=== PATIENT | female | born 1975 | race Caucasian/White ===

== ENCOUNTER 2019-12-09 07:51 | Outpatient (CLI) | payer OTHER, SELFPAY | END 2019-12-09 07:52 | disposition home or self-care (01) | LOC: WOUND 07:54 | PROVIDERS: Family Provider Internal Medicine; Visit Provider Thoracic Surgery (Cardiothoracic Vascular Surgery) | DX: T81.89XA Other complications of procedures, not elsewhere classified, initial encounter (principal) | CPT/HCPCS: 11042; 99203 ==

== ENCOUNTER 2019-12-16 08:58 | Outpatient (CLI) | payer OTHER, SELFPAY | END 2019-12-16 08:59 | disposition home or self-care (01) | LOC: WOUND 09:00 | PROVIDERS: Family Provider Internal Medicine; Visit Provider Thoracic Surgery (Cardiothoracic Vascular Surgery) | DX: T81.89XA Other complications of procedures, not elsewhere classified, initial encounter (principal) | CPT/HCPCS: 11042 ==

== ENCOUNTER 2019-12-23 13:15 | Outpatient (CLI) | payer OTHER, SELFPAY | END 2019-12-23 13:16 | disposition home or self-care (01) | LOC: WOUND 13:15 | PROVIDERS: Family Provider Internal Medicine; Visit Provider Thoracic Surgery (Cardiothoracic Vascular Surgery) | DX: T81.89XA Other complications of procedures, not elsewhere classified, initial encounter (principal) | CPT/HCPCS: 11042 ==

== ENCOUNTER 2019-12-30 08:37 | Outpatient (CLI) | payer OTHER, SELFPAY | END 2019-12-30 08:38 | disposition home or self-care (01) | LOC: WOUND 08:38 | PROVIDERS: Family Provider Internal Medicine; Visit Provider Nurse Practitioner Family | DX: T81.89XA Other complications of procedures, not elsewhere classified, initial encounter (principal); Z90.13 Acquired absence of bilateral breasts and nipples | CPT/HCPCS: 11042 ==

== ENCOUNTER 2020-01-04 15:44 | Outpatient (CLI) | payer OTHER, SELFPAY | END 2020-01-04 15:45 | disposition home or self-care (01) | LOC: WOUND 15:46 | PROVIDERS: Visit Provider Nurse Practitioner Family | DX: L98.492 Non-pressure chronic ulcer of skin of other sites with fat layer exposed (principal) | CPT/HCPCS: 11042 ==

== ENCOUNTER 2020-01-13 08:44 | Outpatient (CLI) | payer OTHER, SELFPAY | END 2020-01-13 08:45 | disposition home or self-care (01) | LOC: WOUND 08:45 | PROVIDERS: Family Provider Internal Medicine; Visit Provider Thoracic Surgery (Cardiothoracic Vascular Surgery) | DX: L98.492 Non-pressure chronic ulcer of skin of other sites with fat layer exposed (principal); I96 Gangrene, not elsewhere classified; Z90.13 Acquired absence of bilateral breasts and nipples | CPT/HCPCS: 11042; 87070; 87176; 87205 ==

== ENCOUNTER 2020-01-20 08:14 | Outpatient (CLI) | payer OTHER, SELFPAY | END 2020-01-20 08:15 | disposition home or self-care (01) | LOC: WOUND 08:14 | PROVIDERS: Family Provider Internal Medicine; Visit Provider Nurse Practitioner Family | DX: T81.89XA Other complications of procedures, not elsewhere classified, initial encounter (principal) | CPT/HCPCS: 11042 ==

== ENCOUNTER 2020-01-27 08:42 | Outpatient (CLI) | payer OTHER, SELFPAY | END 2020-01-27 08:43 | disposition home or self-care (01) | LOC: WOUND 08:42 | PROVIDERS: Family Provider Internal Medicine; Visit Provider Thoracic Surgery (Cardiothoracic Vascular Surgery) | DX: L98.492 Non-pressure chronic ulcer of skin of other sites with fat layer exposed (principal); Z90.13 Acquired absence of bilateral breasts and nipples | CPT/HCPCS: 11042 ==

== ENCOUNTER 2020-02-01 10:48 | Outpatient (CLI) | payer OTHER, SELFPAY | END 2020-02-01 10:49 | disposition home or self-care (01) | LOC: WOUND 10:48 | PROVIDERS: Family Provider Internal Medicine; Visit Provider Nurse Practitioner Family | DX: L98.492 Non-pressure chronic ulcer of skin of other sites with fat layer exposed (principal) | CPT/HCPCS: 11042 ==

== ENCOUNTER 2020-02-08 13:28 | Outpatient (CLI) | payer OTHER, SELFPAY | END 2020-02-08 13:29 | disposition home or self-care (01) | LOC: WOUND 13:28 | PROVIDERS: Family Provider Internal Medicine; Visit Provider Nurse Practitioner Family | DX: L98.492 Non-pressure chronic ulcer of skin of other sites with fat layer exposed (principal) | CPT/HCPCS: 11042 ==

== ENCOUNTER 2020-02-17 08:55 | Outpatient (CLI) | payer OTHER, SELFPAY | END 2020-02-17 08:56 | disposition home or self-care (01) | LOC: WOUND 08:56 | PROVIDERS: Family Provider Internal Medicine; Visit Provider Thoracic Surgery (Cardiothoracic Vascular Surgery) | DX: T81.89XA Other complications of procedures, not elsewhere classified, initial encounter (principal); Y83.8 Other surgical procedures as the cause of abnormal reaction of the patient, or of later complication, without mention of misadventure at the time of the procedure | CPT/HCPCS: 11042 ==

== ENCOUNTER 2020-02-23 06:00 | Outpatient (RCR) | payer OTHER, SELFPAY | END 2020-03-13 23:59 | disposition home or self-care (01) | LOC: SPT 06:00 | PROVIDERS: Referring Provider Plastic Surgery; Visit Provider Plastic Surgery | DX: Z85.3 Personal history of malignant neoplasm of breast (principal); Z90.13 Acquired absence of bilateral breasts and nipples; Z98.890 Other specified postprocedural states | CPT/HCPCS: 97110; 97140; 97162 ==

== ENCOUNTER 2020-02-24 08:44 | Outpatient (CLI) | payer OTHER, SELFPAY | END 2020-02-24 08:45 | disposition home or self-care (01) | LOC: WOUND 08:45 | PROVIDERS: Family Provider Internal Medicine; Visit Provider Thoracic Surgery (Cardiothoracic Vascular Surgery) | DX: L98.492 Non-pressure chronic ulcer of skin of other sites with fat layer exposed (principal) | CPT/HCPCS: 11042 ==

== ENCOUNTER 2020-03-02 08:49 | Outpatient (CLI) | payer OTHER, SELFPAY | END 2020-03-02 08:50 | disposition home or self-care (01) | LOC: WOUND 08:49 | PROVIDERS: Family Provider Internal Medicine; Visit Provider Thoracic Surgery (Cardiothoracic Vascular Surgery) | DX: L98.492 Non-pressure chronic ulcer of skin of other sites with fat layer exposed (principal) | CPT/HCPCS: 11042 ==

== ENCOUNTER 2020-03-09 08:43 | Outpatient (CLI) | payer OTHER, SELFPAY | END 2020-03-09 08:44 | disposition home or self-care (01) | LOC: WOUND 08:44 | PROVIDERS: Family Provider Internal Medicine; Visit Provider Thoracic Surgery (Cardiothoracic Vascular Surgery) | DX: T81.89XA Other complications of procedures, not elsewhere classified, initial encounter (principal); Y83.8 Other surgical procedures as the cause of abnormal reaction of the patient, or of later complication, without mention of misadventure at the time of the procedure | CPT/HCPCS: 99212 ==

== ENCOUNTER 2020-03-14 06:00 | Outpatient (RCR) | payer OTHER, SELFPAY | END 2020-04-10 23:59 | disposition home or self-care (01) | LOC: SPT 06:00 | PROVIDERS: Referring Provider Plastic Surgery; Visit Provider Plastic Surgery | DX: Z85.3 Personal history of malignant neoplasm of breast (principal); Z90.13 Acquired absence of bilateral breasts and nipples; Z98.890 Other specified postprocedural states | CPT/HCPCS: 97110 ==

== ENCOUNTER 2020-04-11 06:00 | Outpatient (RCR) | payer OTHER, SELFPAY | END 2020-05-11 23:59 | disposition home or self-care (01) | LOC: SPT 06:00 | PROVIDERS: Referring Provider Plastic Surgery; Visit Provider Plastic Surgery | DX: Z85.3 Personal history of malignant neoplasm of breast (principal); Z90.13 Acquired absence of bilateral breasts and nipples; Z98.890 Other specified postprocedural states | CPT/HCPCS: 97110 ==

== ENCOUNTER 2020-05-12 06:00 | Outpatient (RCR) | payer OTHER, SELFPAY | END 2020-06-10 23:59 | disposition home or self-care (01) | LOC: SPT 06:00 | PROVIDERS: Referring Provider Plastic Surgery; Visit Provider Plastic Surgery | DX: Z85.3 Personal history of malignant neoplasm of breast (principal); Z90.13 Acquired absence of bilateral breasts and nipples | CPT/HCPCS: 97110 ==

== ENCOUNTER 2020-06-28 12:37 | Outpatient (CLI) | payer OTHER, SELFPAY ==
--- NOTE | 2020-06-28 12:35 | CT_ITS ---
WS: [id number] CT ABDOMEN AND PELVIS WITH CONTRAST HISTORY: S/P TRAM FLAP, ABDOMINAL PAIN, history of breast cancer. Mid and lower abdominal pain for 3 months. TECHNIQUE: Imaging performed of the abdomen and pelvis with IV contrast. Single phase imaging of the abdomen. Coronal and sagittal reformats are submitted. All CT scans at [facility] use at least one of these dose optimization techniques: automated exposure control; mA and/or kV adjustment per patient size (includes targeted exams where dose is matched to clinical indication); or iterativ e reconstruction. IV CONTRAST: Omnipaque 300; 95 mL IV. Oral contrast: Yes. DLP: 1129.92 mGycm COMPARISON: 06/25/2014 Lower thorax: Lung bases are clear. Heart is normal size. Small hiatal hernia. Liver/biliary system: Normal size liver. Several hypodensities scattered throughout the liver consist ent with cysts. The largest measures 1.5 cm in the mid RIGHT lobe of the liver. No bile duct dilatati on. Gallbladder: Gallbladder is contracted. Pancreas: Normal size pancreas and pancreatic duct. No adjacent inflammation. Spleen: Normal size spleen. No mass or infarct. Adrenal glands: Normal. Right kidney: Normal size kidney. 5 mm nonobstructing calcification lower pole. Cortical cyst in the lower pole measures 5 mm. Left kidney: Normal. Aorta: Normal. Lymphadenopathy: None. Free fluid: None. GI tract: The appendix is only partially visualized and appears normal. There is moderate amount of f ood products in the stomach. There is diffuse constipation throughout the colon. No acute inflammator y process. Abdominal wall: Fat-containing umbilical hernia. Pelvis: Bilateral enlarged ovary with with cysts. RIGHT ovary/cyst complex measures 3.1 x 3.7 cm. LEF T ovary/cysts complex measures 3.2 x 5.1 cm. Uterus has been removed. There is a focal bulge through the LEFT lower quadrant abdominal wall. There is an intact. Thin abdominal wall musculature which solis ears ectatic. Bones: Unremarkable. CT/CT abdomen pelvis w con* [id number] IMPRESSION: 1. Diffuse moderate constipation. 2. Large amount food products distending the stomach. May be due to recent teresita l or gastroparesis. 3. Bilateral ovarian cystic masses. Prior ultrasound from 08/22/2018 demonstrat ed no enlarged ovarian masses or cysts. Recommend transvaginal pelvic ultrasoun d evaluation. 4. Ectatic LEFT lower quadrant pelvic wall musculature. Herniation of fat but there is a very ectatic thin layer of musculature remaining. 5. Hepatic cysts.
[2020-06-28] MEDS: iohexol 300 mg/mL 50 mL Btl PO (12:52)
[2020-06-28] MEDS: iohexol 300 mg/mL 100 mL Btl IV (14:10)
== END 2020-06-28 12:38 | disposition home or self-care (01) ==
PROVIDERS: Visit Provider Plastic Surgery
DX: Z98.890 Other specified postprocedural states (principal); R10.9 Unspecified abdominal pain; Z85.3 Personal history of malignant neoplasm of breast; N83.202 Unspecified ovarian cyst, left side; N83.201 Unspecified ovarian cyst, right side; K76.89 Other specified diseases of liver
CPT/HCPCS: 74177; Q9967

== ENCOUNTER 2022-05-20 08:55 | Emergency (ER) | payer OTHER, SELFPAY ==
--- NOTE | 2022-05-20 09:00 | XRR_ITS ---
PROCEDURE INFORMATION: Exam: XR Chest Exam date and time: 05/20/2022 9:50 AM Age: 47 years old Clinical indication: Pain; Chest pressure; Additional info: Chest pain TECHNIQUE: Imaging protocol: Radiologic exam of the chest. Views: 1 view. COMPARISON: CT angio chest PE protcl [id number] 10/05/2018 9:58 PM FINDINGS: Lungs: Unremarkable. No consolidation. Pleural spaces: Unremarkable. No pleural effusion. No pneumothorax. Heart/Mediastinum: Unremarkable. No cardiomegaly. Bones/joints: Unremarkable for age. XR/XR chest 1V portable [id number] IMPRESSION: Negative chest exam.
--- NOTE | 2022-05-20 09:04 | ECG_ITS ---
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 Measurements Intervals [place] Rate: 111 P: -12 AL: 120 QRS: 17 QRSD: 78 T: 65 QT: 337 QTc: 458 Interpretive Statements SINUS TACHYCARDIA LOW QRS VOLTAGE IN PRECORDIAL LEADS [QRS DEFLECTION < 1.0 mV IN CHEST LEADS] ABNORMAL RHYTHM ECG INTERPRETATION BASED ON A DEFAULT AGE OF 40 YEARS Compared to ECG 10/05/2018 23:48:42 Low QRS voltage now present Sinus rhythm no longer present Electronically Signed On 05-20-2022 22:08:19 CDT by Malcom Vieira M.D. [id number]
[2022-05-20 09:08] VITALS: BP 154/106; PULSE 91; RESP 18; TEMP 36.7; O2SAT 99
--- NOTE | 2022-05-20 09:29 | ED_ITS ---
HPI - Chest Pain General: Chief Complaint: Chest Pain Stated Complaint: chest pain, sob, left shoulder pain Time Seen by Provider: 05/20/22 08:57 Source: patient Mode of arrival: ambulatory Limitations: no limitations History of Present Illness: Patient is a very nice 47-year-old female presents to ED today along with her for concerns of acute onset left posterior shoulder pain that began approximately 1 to 2 hours ago when she was riding in a vehicle to mosque. She states while at mosque/singing pain seemed to increase and patient noted diaphoresis and dyspnea. She states she sat down and told her she thought she needed to seek medical evaluation. Patient states she is concerned as she has a strong family history of cardiac disease with several family members experiencing myocardial infarcts in their 30s and 40s. Patient states it feels difficult to take a deep breath. She is not having any specific chest pain at the time of my examination. Patient states she has a history of hypertension and breast cancer. She is status post mastectomy. She states she had rejection of her artificial implants thus a flap breast reconstruction was performed-this was performed in 2019 I believe. She does state two weeks ago she had a bilateral oophorectomy as her breast cancer is estrogen positive and ovary removal allowed her more treatment options. She states her abdominal pain since the surgery has steadily improved and she does not complain of any pain in her abdomen currently. MD complaint: other (L posterior shoulder pain) Pertinent past history: other (HTN, strong family hx of cardiac disease, recent surgery) Onset (ago): hour(s) Prior episodes: No Onset: during rest Pain radiation: none Severity: moderate Quality: tightness and sharp Relieving factors: nothing Exacerbating factors: nothing Context: recent surgery Associated symptoms: Reports abdominal pain (recent surgery-pain improving post op), diaphoresis and dyspnea; Deny fever(s), nausea, palpitations, syncope or vomiting Treatment prior to arrival: none Risk Factors: Coronary artery disease risk factors: hypertension and family history of CAD before age 50 Thoracic aortic dissection risk factors: none Pulmonary embolism risk factors: recent surgery and malignancy Related Data: On Oral Contraceptives: No Review of Systems Const: Reports: diaphoresis; Denies: fever(s), chills, body aches, fatigue or malaise Eyes: Denies: change in vision or blurry vision Card: Reports: swelling of feet/ankles (states she chronically has a little swelling-takes HCTZ) and pre-syncope; Denies: chest pain, palpitations, irregular heart rhythm, edema, lig htheadedness, syncope, dyspnea on exertion, orthopnea, leg pain with exertion or acrocyanosis Resp: Reports: dyspnea; Denies: productive cough, non-productive cough, wheezing, hemoptysis or chest congestion GI: Reports: abdominal pain (recent surgery-pain improving post op); Denies: nausea, vomiting or change in bowel habits : Denies: flank pain or dysuria Musc: Reports: joint pain (L posterior shoulder pain); Denies: neck pain, back pain, extremity pain, extremity swelling, joint swelling, joint redness, joint warmth or limited range of motion Skin/Breast: Denies: rash Neuro: Denies: headache(s), numbness in extremities, weakness in extremities or sensory changes Physical Exam Const: COMMON NORMALS: no acute distress, average body habitus, patient oriented x3, no limitations, healthy appearing, alert and well nourished GENERAL APPEARANCE: cooperative ORIENTATION/CONSCIOUSNESS: Yes awake, Yes oriented to person, Yes oriented to place and Yes oriented to time HENMT: COMMON NORMALS: normocephalic and atraumatic HEAD & SCALP: normal to inspection, normocephalic and atraumatic Neck/C-Spine: COMMON NORMALS: no lymphadenopathy and no JVD GENERAL: Yes normal visual inspection Chest: COMMONS NORMALS: normal inspection of the chest and normal palpation of entire chest wall Resp: COMMON NORMALS: normal respiratory effort and clear to auscultation bilaterally AUSCULTATION: clear to auscultation bilaterally Cardio: COMMON NORMALS: no JVD, regular rate and regular rhythm RATE: regular rate RHYTHM: regular rhythm GI: COMMON NORMALS: Soft to palpation INSPECTION: Yes other (recent surgery/trocar incisions look good) AUSCULTATION: Yes normoactive bowel sounds PALPATION: Yes Soft to palpation, Yes Tenderness to palpation present (GI) (mild soreness from recent surgery; non-surgical abdomen), No Guarding du e to palpation present (GI) and No Rigid due to palpation OTHER: slight tenderness from recent oophorectomy : COMMON NORMALS: Yes no CVA tenderness BLADDER/KIDNEY EXAM: Yes no CVA tenderness Back/Pelvis: COMMON NORMALS: no CVA tenderness, thoracic and lumbar spine normal to inspection, no thoracic nor lumbar tenderness and thoraco-lumbar ROM normal Extremity: COMMON NORMALS: normal to inspection, full ROM, capillary refill normal, no joint enlargement, no clubbing, cyanosis or edema, no calf tenderness and no pedal edema GENERAL: Yes normal exam except as noted Neuro: NONA COMA SCALE: document GCS findings Nona coma scale eye opening: Spontaneous Nona coma scale verbal response: Orientated Nona coma scale motor response: Obey commands Nona coma scale total score: 15 COMMON NORMALS: patient oriented x3, moves all extremities, no focal motor deficits and no sensory deficits noted SENSORIUM/ORIENTATION: Yes alert, Yes oriented to person, Yes oriented to place and Yes oriented to time Skin: COMMON NORMALS: no rashes or lesions noted GENERAL SKIN EXAM: no rashes or lesions noted Course Vital Signs: Vital signs: Vital Signs Temperature 98.1 F 05/20/22 09:08 Pulse Rate 95 05/20/22 12:20 Respiratory Rate 18 05/20/22 09:08 Blood Pressure 137/90 05/20/22 12:20 Pulse Oximetry 97 05/20/22 12:20 Oxygen Delivery Me thod 05/20/22 09:55 MDM - Chest Pain Medical Decision Making Patient is a nice 47-year-old female who presented to ED today with a complaint of pain to her left posterior shoulder that began earlier this morning on her way to mosque. She's had no chest pain during her ED stay. Patient was initially concerned given her family history of cardiac disease beginning at a young age. She was worked up appropriately for this including baseline and repeat troponins and EKGs. Both EKGs were unremarkable. Her baseline trop is normal. Patient decided to leave prior to her 2 hr troponin returning stating she was feeling much better and ready to go. Risks discussed with her. States she would like to be called if it returns elevated. This did return normal. Patient does have a history of breast cancer/malignancy as well as her recent oophorectomy approximately 2 to 3 weeks ago. Given these risk factors d-dimer was added to patient's work-up to rule out pulmonary emboli. This was negative. Consideration given to diaphragmatic irritation with referred pain given her recent surgery however this would be less likely given that surgery was 2 to 3 weeks ago. I do not visualize any free air under patient's diaphragm on her CXR. Patient states she is not having any abdominal pain and pain has progressively and steadily improved since her surgery. I did not feel advanced imaging to her abdomen/pelvis is needed at this time. Patient is stable for discharge from the emergency department. I do recommend she speak to her primary care provider about possibly ordering stress testing outpatient. Lab Data 05/20/22 09:31 05/20/22 09:31 Radiology Impressions Chest X-Ray 05/20/22 09:00 IMPRESSION: Negative chest exam. Laboratory Results WBC 5.2 10^3/uL (4.0-10.0) 05/20/22 09:31 RBC 4.70 10^6/uL (4.1-5.3) 05/20/22 09: Hgb 15.4 g/dL (11.5-15.3) H 05/20/22 09: Hct 46.5 % (37.0-47.0) 05/20/22 09: MCV 98.9 fl (81-99) 05/20/22 09: MCH 32.8 pg (28.0-34.0) 05/20/22 09: MCHC 33.1 g/dL (30.0-36.0) 05/20/22 09: RDW 12.2 % (12.1-15.1) 05/20/22 09: Plt Count 225 10^3/cmm (130-400) 05/20/22 09:31 MPV 10.3 fL (7.4-10.4) 05/20/22 09:31 Neut % (Auto) 57.2 % 05/20/22 09: Lymph % (Auto) 27.0 % 05/20/22 09:31 Hendry % (Auto) 8.2 % 05/20/22 09:31 Eos % (Auto) 6.3 % 05/20/22 09:31 Baso % (Auto) 1.1 % 05/20/22 09: Neut # (Auto) 2.98 10^3/uL (1.8-7.7) 05/20/22 09:31 Lymph # (Auto) 1.4 10^3/uL (0.8-4.8) 05/20/22 09: Hendry # (Auto) 0.4 10^3/uL (0.2-0.9) 05/20/22 09:31 Eos # (Auto) 0.3 10^3/uL (0.0-0.8) 05/20/22 09:31 Baso # (Auto) 0.1 10^3/uL (0.0-0.1) 05/20/22 09:31 Nucleated RBC % (auto) 0 % 05/20/22 09: Nucleated RBCs # 0.0 /100WBC 05/20/22 09:31 D-Dimer 0.42 ug/mIFEU (0-0.59) 05/20/22 09:31 Sodium 132 mmol/L (136-145) L 05/20/22 09:31 Potassium 3.9 mmol/L (3.5-5.1) 05/20/22 09:31 Chloride 96 mmol/L (98-107) L 05/20/22 09:31 Carbon Dioxide 26 mmol/L (22-29) 05/20/22 09:31 Anion Gap 13.9 (5-19) 05/20/22 09:31 BUN 17 mg/dL (6-20) 05/20/22 09:31 Creatinine 0.9 mg/dL (0.5-0.9) 05/20/22 09:31 GFR Calculation 67.1 mL/min (90-130) L 05/20/22 09:31 Glucose 84 mg/dL (65-115) 05/20/22 09:31 Calculated Osmolality 275 mOsm/kg (285-295) L 05/20/22 09:31 Calcium 10.0 mg/dL (8.5-10.5) 05/20/22 09:31 Total Bilirubin 0.5 mg/dL (0.15-1.2) 05/20/22 09:31 AST 20 U/L (0-32) 05/20/22 09:31 ALT 27 U/L (0-33) 05/20/22 09:31 Alkaline Phosphatase 74 U/L (35-105) 05/20/22 09:31 Troponin T Baseline 6 ng/L (0-10) 05/20/22 09:31 Troponin T 120 Minute 6.03 ng/L (0-10) 05/20/22 11:31 Total Protein 7.3 g/dL (6.6-8.7) 04/09/23 09:31 Albumin 4.9 g/dL (3.5-5.2) 05/20/22 09:31 Globulin 2.4 g/dL (1.3-4.6) 05/20/22 09:31 HCG, Qual Negative (Negative) 05/20/22 09:31 Discharge Plan Discharge Patient Disposition: Home Clinical Impression: Pain of left shoulder region, Family history of cardiac disorder Condition: Stable Discharge Orders: Discharge ED (Routine); Ordered 05/20/22 Ordered By: Brooke Clayton Referrals: Pawan Gregory DO [Primary Care Provider] - Activity Restrictions/Additional Instructions: As we have discussed you opted not to stay for your repeat 2-hour troponin. If this comes back elevated I will attempt to reach you on the number provided on your file. You need to speak to your primary care provider about the possible need for stress test based on your cardiac family history. Need to return the emergency department for onset of chest pain, shortness of breath, difficulty breathing, severe dizziness or presyncopal feelings, abdominal pain, or any other concerns you may have. I hope you begin to feel better soon. 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
[2022-05-20 09:55] VITALS: BP 148/115; PULSE 86; O2SAT 96
[2022-05-20 09:56] LABS: Basophils # 0.1 10^3/uL (0.0-0.1); Basophils % 1.1 %; Eosinophils # 0.3 10^3/uL (0.0-0.8); Eosinophils % 6.3 %; Hematocrit 46.5 % (37.0-47.0); Hemoglobin 15.4 g/dL (11.5-15.3); Lymphocytes # 1.4 10^3/uL (0.8-4.8); Mean Corpuscular HGB Conc 33.1 g/dL (30.0-36.0); Mean Corpuscular Hemoglobin 32.8 pg (28.0-34.0); Mean Corpuscular Volume 98.9 fl (81-99); Mean Platelet Volume 10.3 fL (7.4-10.4); Monocytes # 0.4 10^3/uL (0.2-0.9); Monocytes % 8.2 %; Neutrophils # 2.98 10^3/uL (1.8-7.7); Neutrophils % 57.2 %; Nucleated Red Blood Cells % 0 %; Platelet Count 225 10^3/cmm (130-400); Red Cell Distribution Width 12.2 % (12.1-15.1); White Blood Count 5.2 10^3/uL (4.0-10.0)
[2022-05-20 10:12] LABS: HCG, Serum Qual Negative (Negative)
[2022-05-20 10:19] LABS: D Dimer 0.42 ug/mIFEU (0-0.59)
[2022-05-20 10:20] LABS: Troponin(5th) Baseline 6 ng/L (0-10)
[2022-05-20 10:22] LABS: Alanine Aminotransferase 27 U/L (0-33); Albumin Level 4.9 g/dL (3.5-5.2); Alkaline Phosphatase 74 U/L (35-105); Anion Gap 13.9 (5-19); Aspartate Amino Transferase 20 U/L (0-32); Blood Urea Nitrogen 17 mg/dL (6-20); Carbon Dioxide 26 mmol/L (22-29); Chloride 96 mmol/L (98-107); Globulin 2.4 g/dL (1.3-4.6); Glomerular Filtration Rate 67.1 mL/min (90-130); Glucose 84 mg/dL (65-115); Osmolality Calculated 275 mOsm/kg (285-295); Potassium 3.9 mmol/L (3.5-5.1); Sodium 132 mmol/L (136-145); Total Bilirubin 0.5 mg/dL (0.15-1.2); Total Protein 7.3 g/dL (6.6-8.7)
[2022-05-20 10:40] VITALS: BP 129/101; PULSE 86; O2SAT 96
--- NOTE | 2022-05-20 10:46 | ECG_ITS ---
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 Measurements Intervals [place] Rate: 80 P: 27 WI: 150 QRS: 17 QRSD: 79 T: 58 QT: 391 QTc: 451 Interpretive Statements SINUS RHYTHM WITH SINUS ARRHYTHMIA Compared to ECG 05/20/2022 09:04:32 Sinus tachycardia no longer present Electronically Signed On 05-20-2022 22:16:09 CDT by Malcom Vieira M.D. [id number]
[2022-05-20 11:57] VITALS: BP 137/100; PULSE 87; O2SAT 96
[2022-05-20 12:20] VITALS: BP 137/90; PULSE 95; O2SAT 97
[2022-05-20 12:24] LABS: Troponin 5 2HR 6.03 ng/L (0-10)
[2022-05-20 12:37] LABS: Troponin 5 2HR Delta 0.03 ABS# (0-10)
== END 2022-05-20 12:22 | disposition home or self-care (01) ==
PROVIDERS: Emergency Provider Physician Assistant; PCP Internal Medicine
DX: M25.512 Pain in left shoulder (principal); Z82.49 Family history of ischemic heart disease and other diseases of the circulatory system
CPT/HCPCS: 36415; 71045; 80053; 84484; 84703; 85025; 85378; 93005; 99285

== ENCOUNTER → 2022-11-28 10:52 | Outpatient (BNVA) | payer OTHER, SELFPAY | PROVIDERS: PCP Internal Medicine; Visit Provider Podiatrist Foot & Ankle Surgery | DX: M25.872 Other specified joint disorders, left ankle and foot | CPT/HCPCS: 73630 ==

== ENCOUNTER 2024-04-29 20:00 | Outpatient (CLI) | payer OTHER, SELFPAY | END 2024-04-29 20:01 | disposition home or self-care (01) | LOC: SLEEP 22:24 | PROVIDERS: PCP Internal Medicine; Visit Provider Internal Medicine | DX: G47.33 Obstructive sleep apnea (adult) (pediatric) (principal) | CPT/HCPCS: 95811 ==

== ENCOUNTER 2024-11-11 12:48 | Outpatient (CLI) | payer OTHER, SELFPAY ==
--- NOTE | 2024-11-11 12:57 | MR_ITS ---
WS: [id number] MRI HEAD WITH CONTRAST TECHNIQUE: Sagittal T1, T2 axial, T2 axial FLAIR, axial susceptibility weighted imaging, axial diffusion weighted images, and coronal T2 images were obtained. Pre and post-T1 axial and post T1 coronal images. ADC and FSPGR images. CLINICAL INFORMATION: TRANSIENT DIPLOPIA COMPARISON: None. FINDINGS: No evidence of restricted diffusion to suggest acute ischemia. Ventricular system and basal cisterns are patent. Moderate patchy supratentorial white matter changes mainly in the frontal periventricular and subcortical white matter. Additional white matter changes in the katherin. Findings are nonspecific in a patient this age but can be seen with hypertension, diabetes, and small vessel disease. Demyelinating diseases is an additional consideration given the history of blurred vision. No significant parenchymal volume loss. Normal posterior fossa. Normal vascular flow voids at the skull base. No extra-axial fluid collections. Paranasal sinuses and mastoid air cells are well aerated. No hemosiderin on the susceptibly weighted images. Normal optic chiasm and pituitary infundibulum. Ti ny hypoenhancing lesion in the RIGHT posterior pituitary measuring 3 mm. This may be incidental but differential considerations include microadenoma, Rathke's cleft cyst, pars intermedia cyst. Recommend correlation with pituitary function studies. No abnormal gadolinium enhancement. Normal dural venous sinuses. Suggestion of bilateral optic nerve enhancement can be seen with optic neuritis. This study is not specifically protocoled for the orbits and difficult to further delineate MR/MR head wo/w con [id number] IMPRESSION: 1. Moderate patchy supratentorial white matter changes with white matter israel es in the katherin. Findings are nonspecific in a patient this age but include hype rtension, diabetes, small vessel disease, and possibly demyelinating disease. 2. No abnormal intracranial enhancement. 3. Suggestion of prominent optic nerve/nerve sheath enhancement can be seen wi th optic neuritis. Recommend clinical correlation. The study is not specificall y protocoled for the optic nerves or orbits. 4. Tiny hypoenhancing lesion in the RIGHT posterior pituitary measuring 3 mm. This may be incidental but differential considerations include microadenoma, Ra thke's cleft cyst, pars intermedia cyst. Recommend correlation with pituitary f unction studies
[2024-11-11] MEDS: gadobenate dimeglumine 20 mL vial IV (13:37)
== END 2024-11-11 12:49 | disposition home or self-care (01) ==
LOC: RAD 12:50
PROVIDERS: PCP Internal Medicine; Visit Provider Family Medicine
DX: H53.2 Diplopia (principal); G93.89 Other specified disorders of brain; E23.6 Other disorders of pituitary gland
CPT/HCPCS: 70553

== ENCOUNTER 2024-11-26 03:10 | Emergency (ER) | payer OTHER, SELFPAY ==
[2024-11-26 03:10] VITALS: BP 125/88; PULSE 99; RESP 16; TEMP 36.6; O2SAT 98; BMI 24.7
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
--- OUTSIDE RECORDS SUMMARY | 2024-11-26 03:20 | XMS_ITS | Data Portability ---
Author Organization 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 all questions were answered to the patient's satisfaction. the patient was given the opportunity to ask additional questions and acknowledged he had no additional questions at this time and will call if any questions arise. [email or web address] Not available 10/13/2024 08:50:24 10/13/2024 10/13/2024 see previous note. with the diplopia, generalized weakness and severe fatigue, I am concerned regarding MS. MRI brain should be helpful, but I am recommending a neurologist evaluation as well. apparently neurogenic bladder has thankfully been ruled out. I spent greater than 45 mins. in counseling and answering questions on her issues noted today, reviewing previous lab studies, next steps in evaluation, on exam explaining next steps and what possible dx we are looking for. all questions were answered to the patient's satisfaction. the patient was given the opportunity to ask additional questions and acknowledged he had no additional questions at this time and will call if any questions arise. [email or web address] Not available 10/13/2024 09:26:59 11/13/2024 11/13/2024 no sign of infectious cause, sodium is normal. esr crp are normal thryoid is normal. I spent greater than 25 mins in counseling and answering questions on her mri results. all questions were answered to the patient's satisfaction. the patient was given the opportunity to ask additional questions and acknowledged he had no additional questions at this time and will call if any questions arise. Not available 11/13/2024 14:07:18 11/20/2024 11/20/2024 f/u as needed may cautuiously use otc nsaids as well monitoring for bp. [email or web address] Not available 11/20/2024 09:25:00 Plan of Treatment Reminders Order Date Submit Date Provider Last Modified By Organization Details Last Modified Time Details Appointments None recorded. Lab H pylori urea breath test, co2 infrared 2024 025 [facility] ([facility]), [address] [place] [address], [address], 5 08:46:25 C-reactiv e protein, quantitat karson, serum or plasma 2024 025 [place] [facility], [address] [place] [address], [facility] [address] [place], [address], 5 16:48:38 CBC 2024 025 [facility], [address] [place] [address], [address], 5 13:04:32 CMP, serum or plasma 2024 025 [facility], [address] [place] [address], [address], 5 13:24:26 ESR (erythroc yte sedimenta tion rate), blood [address] ([facility]), [address] [place], [address], 5 08:49:56 C-reactiv e protein, quantitat karson, serum or plasma 2024 025 [place] [address] [employer] [facility], [address] [place] [address] 248, [address], [place], [address], 08:10:20 ESR (erythroc yte sedimenta tion rate), blood [address] [facility], [address] [facility] [facility] [address], [address], [place], [address], 08:10:20 unlisted lab - TAMARA, ifa, cascade and rheumatoi d arthritis h panel 2, with reflexes 2024 MIAMI [employer] [facility], [address] , [place], [address], 16:48:35 thyrotrop in, QN, serum or plasma 2024 025 [facility], [address] [facility] [facility] [address], [address], [place], [address], 13:20:57 T4, free, serum 2024 025 MIAMI [employer] [facility], [address] [place] [address], [address], [place], [address], 5 16:48:40 CK (creatine kinase), total, serum 2024 025 [facility], [address] [place] [address], [address], [place], [address], 5 16:48:37 magnesium , serum or plasma - added test per Dr Hung 2024 025 [facility], [address] [place] [address], [address], [place], [address], 06:06:50 Referral pelvic floor therapy referral - carmen moran 2024 025 [email or web address] 2 [facility], [address], [place], [address], 18:01:[address] referral - [facility] dept of multiple sclerosis and neuroimmu nology Phone: (option 1) Fax: 2024 025 [email or web address] 2 Not available 16:30:35 ophthalmo logist referral 2024 025 [email or web address] 2 [facility], [address] , [place], [address], 17:25:18 Procedures None recorded. Surgeries None recorded. Imaging MRI, cervical spine, w/wo contrast 2024 [facility]25 [facility], [address] [place], [address], 09:37:24 MRI, thoracic spine, w/wo contrast 2024 025 [facility], [address] [place], [address], 09:37:56 MRI, brain, w/wo contrast 2024 025 [facility], [address] [place], [address], 16:37:19 electromy ogram + nerve conductio n study - 4 extremiti es 2024 [facility], [address] [place], [address], 15:19:03 Medication Orders tizanidin e 4 mg tablet 2024 025 [facility] #[id number], [address], [address], [place], [address], 09:24:41 ketorolac 60 mg/2 mL intramusc ular solution 2024 025 [email or web address] Not available 09:26:49 pantopraz ole 40 mg tablet,de layed release 2024 025 [id number], [address], [address], [place], [address], 12:33:56 sucralfat e 1 gram tablet 2024 025 [id number], [address], [address], [place], [address], 12:33:57 irbesarta n 75 mg tablet 2024 025 [id number], [address], [address], [place], [address], 09:01:43 clonidine HCl 0.1 mg tablet 2024 025 [id number], [address], [address], [place], [address], 12:00:18 irbesarta n 75 mg tablet 2024 025 [email or web address] [id number], [address], [address], [place], [address], 09:01:41 Patient TargetsNo targets recorded. Patient InstructionsNo instructions recorded. 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 Referring Physician: North Hung, Family Medicine, Encounter Date: 10/13/2024 Neurologist Referral for Mul tiple sclerosis [facility] dept of multiple sclerosis and neuroimmunologyPhone: (option 1) Referring Physician: North Hung [facility] Medicine, Encounter Date: 11/13/2024 Pelvic Floor Therapy Referra l for Overactive urinary bladder carmen luisa Referring Physician: North Hung [facility], Encounter Date: 11/13/2024 Results Created Date Observation Date Name Description Value Unit Range Abnormal Flag Note LastModifiedBy Organization Detail LastModifiedTime 09/26/1909/25/2024 CBC WBC 7.0 x10 4.0-10 .5 Not Available [facility] [address] [facility] [address], [place], [address], 09/25/2024 13:04:32 09/26/1909/25/2024 CBC RBC 4.48 x10 3.50-5 .50 Not Available [facility] [address] [facility] [address], [place], [address], 09/25/2024 13:04:32 09/26/19 25 09/25/2024 CBC HGB 14.1 g/dL 12.0-1 6.0 Not Available [facility] [address] [facility] [address], [place], [address], 09/25/2024 13:04:32 09/26/1909/25/2024 CBC HCT 43.4 % 37.0-4 7.0 Not Available [facility] [address] [facility] [address], [place], [address], 09/25/2024 13:04:32 09/26/1909/25/2024 CBC MCV 96.8 fL 80.0-9 9.9 Not Available [facility] [address] [facility] [address], [place], [address], 09/25/2024 13:04:32 09/26/19 25 09/25/2024 CBC MCH 31.5 pg 27.0-3 2.0 Not Available [facility] [address] [facility] [facility], [place], [address], 09/25/2024 13:04:32 09/26/1909/25/2024 CBC MCHC 32.6 g/dL 32.0-3 6.0 Not Available [facility] [address] [facility], [place], [address], 09/25/2024 13:04:32 09/26/1909/25/2024 CBC RDW 12.8 % 11.5-1 4.5 Not Available [facility] [address] [facility], [place], [address], 09/25/2024 13:04:32 09/26/1909/25/2024 CBC plt 264.9 x10 140.0- 451.0 Not Available [facility] [address] [facility], [place], [address], 09/25/2024 13:04:32 09/26/1909/25/2024 CBC lymphocytes % 33.4 % 20.0-5 0.0 Not Available [facility] [address] [facility], [place], [address], 09/25/2024 13:04:32 09/26/1909/25/2024 CBC granulcytes % 55.2 % 30.0-7 0.0 Not Available [facility] [address] [facility], [place], [address], 09/25/2024 13:04:32 09/26/1909/25/2024 CBC monocytes % 8.9 % 2.0-16 .0 Not Available [facility] [address] [facility], [place], [address], 09/25/2024 13:04:32 09/26/19 09/25/2024 CBC granulcytes# 3.8 x10 Not Ember ilable [facility] [address] [facility], [place], [address], 09/25/2024 13:04:32 09/26/19 25 09/25/2024 CBC lymphocytes # 2.3 x10 Not Available [facility] [address] [facility], [place], [address], 09/25/2024 13:04:32 09/26/19 25 09/25/2024 CBC monocytes # 0.6 x10 Not Avai lable [facility] [address] [address], [place], [address], 09/25/2024 13:04:32 09/26/19 25 09/25/2024 TSH TSH 1.79 uIU/m L 0.49-3 .82 Not Available [facility] [address] [address], [place], [address], 09/25/2024 13:20:57 09/26/19 25 09/25/2024 CMP (FEMA LE) glucose 86.0 mg/dL 60.0-9 9.0 Not Available [facility] [address] [address], [place], [address], 09/25/2024 13:24:25 09/26/19 25 09/25/2024 CMP (FEMA LE) BUN (blood urea nitrogen) 15.0 mg/dL 10.0-2 6.0 Not Available [facility] [address] [facility] L[address] [facility], [place], [address], 09/25/2024 13:24:25 09/26/19 25 09/25/2024 CMP (FEMA LE) creatinine (serum) 0.8 mg/dL 0.4-1. 5 Not Available [facility] [address] [place], [address], 09/25/2024 13:24:25 09/26/19 25 09/25/2024 CMP (FEMA LE) BUN/creatini ne ratio 18.75 ratio Not Available [facility] [address] [facility] Lary [facility], [place], [address], 09/25/2024 13:24:25 09/26/19 25 09/25/2024 CMP (FEMA LE) eGFR calculated 81.0 Not Available [facility] [address] [facility], [place], [address], 09/25/2024 13:24:25 09/26/19 25 09/25/2024 CMP (FEMA LE) total protein 8.0 g/dL 6.0-8. 5 Not Available [facility] [address] [facility], [place], [address], 09/25/2024 13:24:25 09/26/19 25 09/25/2024 CMP (FEMA LE) total bilirubin 0.7 mg/dL 0.2-1. 3 Not Available [facility] [address] [facility], [place], [address], 09/25/2024 13:24:25 09/26/19 25 09/25/2024 CMP (FEMA LE) albumin 5.0 g/dL 3.5-5. 5 Not Available [facility] [address] [facility], [place], [address], 09/25/2024 13:24:25 09/26/19 25 09/25/2024 CMP (FEMA LE) globulin 3.0 calc Not Available [facility] [address] [facility], [place], [address], 09/25/2024 13:24:25 09/26/19 25 09/25/2024 CMP (FEMA LE) AST (SGOT) 25.0 U/L 0.0-46 .0 Not Available [facility] [address] [facility] [address], [place], [address], 09/25/2024 13:24:25 09/26/19 25 09/25/2024 CMP (FEMA LE) altv (SGPT) 18.0 U/L 13.0-6 9.0 normal Not Available [facility] [address] [facility] [address], [place], [address], 09/25/2024 13:24:25 09/26/19 25 09/25/2024 CMP (FEMA LE) A/G ratio 1.7 ratio Not Available [facility] [address] [facility] [address], [place], [address], 09/25/2024 13:24:25 09/26/19 25 09/25/2024 CMP (FEMA LE) ALP phos 70.0 U/L 30.0-1 40.0 normal Not Available [facility] [address] [facility] [address], [place], [address], 09/25/2024 13:24:25 09/26/19 25 09/25/2024 CMP (FEMA LE) calcium 10.0 mg/dL 8.4-10 .5 Not Available [facility] [address] [address], [place], [address], 09/25/2024 13:24:25 09/26/19 25 09/25/2024 CMP (FEMA LE) sodium 135.0 mmol/ L 136.0- 145.0 low Not Available [facility] [address] [facility], [place], [address], 09/25/2024 13:24:25 09/26/19 25 09/25/2024 CMP (FEMA LE) potassium 3.1 mmol/ L 3.5-5. 1 low Not Available [facility] [address] [facility] [address], [place], [address], 09/25/2024 13:24:25 09/26/19 25 09/25/2024 CMP (FEMA LE) chloride 94.0 mmol/ L 98.0-1 10.0 abnormal Not Available [facility] [address] [facility], [place], [address], 09/25/2024 13:24:25 09/26/19 25 09/25/2024 CMP (FEMA LE) C02 33.0 mmol/ L 22.0-3 1.0 high Not Available [facility] [address] [facility] [address], [place], [address], 09/25/2024 13:24:25 09/26/19 25 09/25/2024 CMP (FEMA LE) anion gap 8.0 calc Not Available [facility] [address] [address], [place], [address], 09/25/2024 13:24:25 09/26/19 25 09/25/2024 CMP (FEMA LE) osmolality 279.3 calc Not Available [facility] [address] [address], [place], [address], 09/25/2024 13:24:25 09/01/19 25 09/02/2024 CULTU RE, URINE , ROUTI NE culture, urine, routine SEE NOTE abnormal CULTU RE, URINE , ROUTI NE Micro Numbe r: [id number] Test Statu s: Final Speci men Sourc e: Urine , clean catch Speci men Quali ty: Adequ ate Resul t: 50,00 0-100 ,000 CFU/m L of Esche melissa a coli E.col i ----- ----- ----- - INT GRACE AMOX/ CLAVU LANAT E S <=2 AMP/S ULBAC SEXTON S <=2 CEFAZ DEVEN NR 2 2 CEFEP CARMEN S <=0.1 2 CEFTA ZIDIM E S <=0.5 CEFTR IAXON E S <=0.2 5 CIPRO FLOXA GLYNN S <=0.0 6 GENTA MICIN S <=1 IMIPE NEM S <=0.2 5 LEVOF LOXAC IN S <=0.1 2 MEROP ENEM S <=0.2 5 NITRO FURAN TOIN S <=16 PIP/T AZOBA CTAM S <=4 TRIME THOPR IM/LION LFA S <=20 S = Susce ptibl e I = Inter media te R = Resis tant NS = Not susce ptibl e SDD = Susce ptibl e Dose Depen dent * = Not Teste d NR = Not Repor radha NN = See Thera py Comme nts THERA PY COMME NTS Note 1: For infec tions other than uncom plica radha UTI cause d by E. coli, K. pneum oniae or P. mirab ilis: Cefaz deven is resis tant if GRACE > or = 8 mcg/m L. (Dist ingui shing susce ptibl e versu s inter media te for isola evelia with GRACE < or = 4 mcg/m L requi res addit ional testi ng.) Note 2: For uncom plica radha UTI cause d by E. coli, K. pneum oniae or P. mirab ilis: Cefaz deven is susce ptibl e if GRACE <32 mcg/m L and predi cts susce ptibl e to the oral agent s cefac gee, cefdi leigh, cefpo doxim e, cefpr ozil, cefur oxime , cepha lexin and lorac arbef . Not Available [employer] [facility] [address] [place], [address], 09/02/2024 19:15:04 09/01/19 25 08/31/2024 urina lysis , dipst ick Leukocytes Large Not Available [facility] ([facility]) [address] [place] [address], [address], 08/31/2024 09:15:02 09/01/19 25 08/31/2024 urina lysis , dipst ick Nitrite positi ve Not Available [facility] ([facility]) [address] [place], [address], 08/31/2024 09:15:02 09/01/19 25 08/31/2024 urina lysis , dipst ick Urobilinogen 8 Not Available [facility] ([facility]) [address] [place], [address], 08/31/2024 09:15:02 09/01/19 25 08/31/2024 urina lysis , dipst ick Protein 300 Not Available [facility] ([facility]) [address] [place], [address], 08/31/2024 09:15:02 09/01/19 25 08/31/2024 urina lysis , dipst ick pH 5.0 Not Available [facility] ([facility]) [address] [place], [address], 08/31/2024 09:15:02 09/01/1908/31/2024 urina lysis , dipst ick Blood Modera te Not Available [facility] ([facility]) [address] [place], [address], 08/31/2024 09:15:02 09/01/19 25 08/31/2024 urina lysis , dipst ick Specific [place] 1.010 Not Available [facility] ( [facility]) [address] [place], [address], 08/31/2024 09:15:02 09/01/19 25 08/31/2024 urina lysis , dipst ick Ketone Small Not Available [facility] ([facility]) [address] [place], [address], 08/31/2024 09:15:02 09/01/19 25 08/31/2024 urina lysis , dipst ick Bilirubin Modera te Not Available [facility] ([facility]) [address] [place], [address], 08/31/2024 09:15:02 09/01/19 25 08/31/2024 urina lysis , dipst ick Glucose 250 Not Available [facility] ([facility]) [address] [place], [address], 08/31/2024 09:15:02 09/01/1908/31/2024 urina lysis , dipst ick Appearance Slight ly Cloudy Not Available [facility] ([facility]) [address] [place], [address], 08/31/2024 09:15:02 09/01/1908/31/2024 urina lysis , dipst ick Color [place] Not Available [facility] ([facility]) [address] [place], [address], 08/31/2024 09:15:02 09/08/19 25 09/08/2024 CULTU RE, URINE , ROUTI NE culture, urine, routine SEE NOTE CULTU RE, URINE , ROUTI NE Micro Numbe r: [id number] Test Statu s: Final Speci men Sourc e: Urine Speci men Quali ty: Adequ ate Resul t: Less than 10,00 0 CFU/m L of singl e Gram posit karson organ ism isola radha. No furth er testi ng will be perfo rmed. If clini ángel indic ated, recol lecti on using a metho d to minim ize conta minat ion, with promp t trans alfie to Urine Cultu re Trans port Tube, is recom casi d. Not Available [facility] [address] [address], [place], [address], 09/08/2024 21:33:40 09/08/19 25 09/07/2024 urina lysis , dipst ick Leukocytes Negati ve Not Available [facility] ([facility]) [address] [place], [address], 09/07/2024 11:01:35 09/08/19 25 09/07/2024 urina lysis , dipst ick Nitrite negati ve Not Available [facility] ([facility]) [address] [place], [address], 09/07/2024 11:01:35 09/08/19 25 09/07/2024 urina lysis , dipst ick Urobilinogen .2 Not Available [facility] ([facility]) [address] [place], [address], 09/07/2024 11:01:35 09/08/19 25 09/07/2024 urina lysis , dipst ick Protein Negati ve Not Available [facility] ([facility]) [address] [place], [address], 09/07/2024 11:01:35 09/08/19 25 09/07/2024 urina lysis , dipst ick pH 6.5 Not Available [facility] ([facility]) [address] [place], [address], 09/07/2024 11:01:35 09/08/19 25 09/07/2024 urina lysis , dipst ick Blood Negati ve Not Available [facility] ([facility]) [address] [place], [address], 09/07/2024 11:01:35 09/08/19 25 09/07/2024 urina lysis , dipst ick Specific [place] 1.020 Not Available [facility] ( [facility]) [address] [place], [address], 09/07/2024 11:01:35 09/08/19 25 09/07/2024 urina lysis , dipst ick Ketone Negati ve Not Available [facility] ([facility]) [address] [place], [address], 09/07/2024 11:01:35 09/08/19 25 09/07/2024 urina lysis , dipst ick Bilirubin Negati ve Not Available [facility] ([facility]) [address] [place], [address], 09/07/2024 11:01:35 09/08/19 25 09/07/2024 urina lysis , dipst ick Glucose Negati ve Not Available [facility] ([facility]) [address] [place], [address], 09/07/2024 11:01:35 09/08/19 25 09/07/2024 urina lysis , dipst ick Appearance Slight ly Cloudy Not Available [facility] ([facility]) [address] [place], [address], 09/07/2024 11:01:35 09/08/19 25 09/07/2024 urina lysis , dipst ick Color Yellow Not Available [facility] ([facility]) [address] [place], [address], 09/07/2024 11:01:35 09/22/19 25 09/23/2024 CULTU RE, URINE , ROUTI NE culture, urine, routine SEE NOTE abnormal CULTU RE, URINE , ROUTI NE Micro Numbe r: [id number] Test Statu s: Final Speci men Sourc e: Urine , clean catch Speci men Quali ty: Adequ ate Resul t: Great er than 100,0 00 CFU/m L of Esche melissa a coli E.col i ----- ----- ----- - INT GRACE AMOX/ CLAVU LANAT E S 4 AMP/S ULBAC SEXTON S <=2 CEFAZ DEVEN NR 2 2 CEFEP CARMEN S <=0.1 2 CEFTA ZIDIM E S <=0.5 CEFTR IAXON E S <=0.2 5 CIPRO FLOXA GLYNN S <=0.0 6 GENTA MICIN S <=1 IMIPE NEM S <=0.2 5 LEVOF LOXAC IN S <=0.1 2 MEROP ENEM S <=0.2 5 NITRO FURAN TOIN S <=16 PIP/T AZOBA CTAM S <=4 TRIME THOPR IM/LION LFA S <=20 S = Susce ptibl e I = Inter media te R = Resis tant NS = Not susce ptibl e SDD = Susce ptibl e Dose Depen dent * = Not Teste d NR = Not Repor radha NN = See Thera py Comme nts THERA PY COMME NTS Note 1: For infec tions other than uncom plica radha UTI cause d by E. coli, K. pneum oniae or P. mirab ilis: Cefaz deven is resis tant if GRACE > or = 8 mcg/m L. (Dist ingui shing susce ptibl e versu s inter media te for isola evelia with GRACE < or = 4 mcg/m L requi res addit ional testi ng.) Note 2: For uncom plica radha UTI cause d by E. coli, K. pneum oniae or P. mirab ilis: Cefaz deven is susce ptibl e if GRACE <32 mcg/m L and predi cts susce ptibl e to the oral agent s cefac gee, cefdi leigh, cefpo doxim e, cefpr ozil, cefur oxime , cepha lexin and lorac arbef . Not Available [employer] [facility] [address] [place], [address], 09/23/2024 20:12:43 09/22/19 25 09/21/2024 urina lysis , dipst ick Leukocytes Large Not Available [facility] ( [facility]) [facility] [place], [address], 09/21/2024 09:54:06 09/22/19 25 09/21/2024 urina lysis , dipst ick Nitrite positi ve Not Available [facility] ([facility]) [address] [place], [address], 09/21/2024 09:54:06 09/22/19 25 09/21/2024 urina lysis , dipst ick Urobilinogen .2 Not Available [facility] ([facility]) [address] [place], [address], 09/21/2024 09:54:06 09/22/1909/21/2024 urina lysis , dipst ick Protein 100 Not Available [facility] ([facility]) [address] [place], [address], 09/21/2024 09:54:06 09/22/1909/21/2024 urina lysis , dipst ick pH 8.0 Not Available [facility] ([facility]) [address] [place], [address], 09/21/2024 09:54:06 09/22/19 25 09/21/2024 urina lysis , dipst ick Blood Large Not Available [facility] ([facility]) [address] [place], [address], 09/21/2024 09:54:06 09/22/1909/21/2024 urina lysis , dipst ick Specific [place] 1.015 Not Available [facility] ( [facility]) [address] [place], [address], 09/21/2024 09:54:06 09/22/1909/21/2024 urina lysis , dipst ick Ketone Negati ve Not Available [facility] ([facility]) [address] [place], [address], 09/21/2024 09:54:06 09/22/19 25 09/21/2024 urina lysis , dipst ick Bilirubin Negati ve Not Available [facility] ([facility]) [address] [place], [address], 09/21/2024 09:54:06 09/22/19 25 09/21/2024 urina lysis , dipst ick Glucose Negati ve Not Available [facility] ([facility]) [address] [place], [address], 09/21/2024 09:54:06 09/22/19 25 09/21/2024 urina lysis , dipst ick Appearance Clear Not Available [facility] ([facility]) [address] [place], [address], 09/21/2024 09:54:06 09/22/19 25 09/21/2024 urina lysis , dipst ick Color Dark Yellow Not Available [facility] ([facility]) [address] [place], [address], 09/21/2024 09:54:06 09/26/19 25 09/28/2024 TAMARA,I FA, CASCA DE AND RHEUM ATOID ARTHR ITIS PANEL 2, WITH REFLE XES TAMARA screen, ifa NEGATI VE negati ve normal TAMARA IFA is a first line scree n for detec ting the prese nce of up to appro ximat traci 150 autoa ntibo dies in vario us autoi mmune disea ses. A negat karson TAMARA IFA resul t sugge sts an TAMARA-a ssoci ated autoi mmune disea se is not prese nt at this time, and does not refle x furth er. If there is high clini iva suspi cion for Sjogr en's syndr ome, testi ng for anti- SS-A/ Ro antib sanya shoul d be consi dered . Anti- Niru-1 antib sanya shoul d be consi dered for clini ángel suspe cted infla mmato ry myopa yehuda . AC-0: Negat karson Inter natio nal Conse nsus on TAMARA Patte rns (http s://d oi.or g/10. 1515/ [facility]- 2017- 0052) For addit ional infor les garcia e refer to http: //[facility] tona fineQue stDia gnost ics.c om/fa q/FAQ 177 (This link is being provi ded for infor tesfaye briggs/ educa dago l purpo ses only. ) Not Available [address] [address] [place], [address], 09/28/2024 16:48:35 09/26/1909/28/2024 TAMARA,I FA, CASCA DE AND RHEUM ATOID ARTHR ITIS PANEL 2, WITH REFLE XES rheumatoid factor <10 IU/mL <14 normal Not Available [facility] [address] [address] [place], [address], 09/28/2024 16:48:35 09/26/19 25 09/28/2024 TAMARA,I FA, CASCA DE AND RHEUM ATOID ARTHR ITIS PANEL 2, WITH REFLE XES cyclic citrullinate d peptide (ccp) Ab (IgG) <16 units normal Refer ence Range Negat karson: <20 Weak Posit karson: 20-39 Moder ate Posit karson: 40-59 Stron g Posit karson: >59 Not Available [facility] [address] [address] [place], [address], 09/28/2024 16:48:35 09/26/1909/28/2024 TAMARA,I FA, CASCA DE AND RHEUM ATOID ARTHR ITIS PANEL 2, WITH REFLE XES mutated citrullinate d vimentin (MCV) Ab <20 U/mL <20 Anti- mutat ed citru llina radha limen tin antib sanya may be used as a secon d-consuelo e conchae r of rheum atoid arthr itis, in addit ion to rheum atoid facto r and anti- cycli c citru llina radha pepti de (CCP) . Not Available [address] [address] [place], [address], 09/28/2024 16:48:35 09/26/19 25 09/28/2024 CREAT INE KINAS E, TOTAL creatine kinase, total 66 U/L 20-239 normal Not Available [address], [address], 09/28/2024 16:48:37 09/26/19 25 09/28/2024 C-LEXIE CTIVE PROTE IN C-reactive protein <3.0 mg/L <8.0 normal Not Available [address], [address], 09/28/2024 16:48:38 09/26/19 25 09/28/2024 T4, FREE T4, free 1.4 NG/dL 0.8-1. 8 normal Not Available [address], [address], 09/28/2024 16:48:39 09/26/19 25 09/25/2024 ESR (eryt hrocy te sedim entat ion rate) , blood SedRate 21 Not Available [facility] ([facility]) [address] [place], [address], 09/25/2024 11:58:57 09/30/19 25 09/30/2024 MAGNE SIUM magnesium 2.2 mg/dL 1.5-2. 5 normal Not Available [address], [address], 09/30/2024 06:06:50 10/24/19 25 10/24/2024 IRON, TIBC AND ARACELIS TIN PANEL iron, total 65 mcg/d L 40-190 normal Not Available [address], [address], 10/24/2024 10:17:44 10/24/19 25 10/24/2024 IRON, TIBC AND ARACELIS TIN PANEL iron binding capacity 230 mcg/d L_(ca lc) 250-45 0 low Not Available [address], [address], 10/24/2024 10:17:44 10/24/19 25 10/24/2024 IRON, TIBC AND ARACELIS TIN PANEL % saturation 28 %_(ca lc) 16-45 normal Not Available [facility] [address], [address], 10/24/2024 10:17:44 10/24/19 25 10/24/2024 IRON, TIBC AND ARACELIS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 she reports she is noticeably less strong that she was a few years ago. She becomes fatigued extremely easily. she reports subjectively reduced sensation fingers and toes and transiently in the vaginal area. this is reported subjectively on exam to light tough and monofilament North Hung MD [address] [place] [address], [phone], [facility] 10/13/2024 09:27:21 11/03/2024 text/html Hypertension F/UReported by PatientHPIFor associated symptoms, patient reportslightheadednes s,chest pain, andheadache(right axilla pain). For medications, patient reportstaking medications as directed.Patient has been monitoring BP at home. At home BP have been running 141/102 158/116 147/109 142/112. She has brought her BP cuff in for verification. Pt has been having a lot of stress as well. Pt states that when she has stress in her life it shows physically. She has also loss of appetite.ROS as noted in the HPI we cannot check in her right arm due to her mastectomyher cuff and our cuff are accurate. North Hung MD [address] [place] [address], [phone], [facility] 11/03/2024 12:34:26 11/13/2024 text/html Pt is here to discuss the results of her MRI brain from 11/11.her home blood pressures has been much much better. on 123/80 the last several days. she will report pressures next week and we will work to continue to maintain good bp control. North Hung MD [address] [place] [address], [phone], [facility] 11/13/2024 14:07:34 11/20/2024 text/html Back PainReporte d by Patient walk in patientpatient is here today for right upper side back pain that started yesterday then this morning when waking up it is worse DIO MCPHERSON [address] [place], [phone], [facility] Markus Almanza 11/20/2024 10:10:40 OBGyn Episode No OBEpisode recorded.
[2024-11-26 04:00] VITALS: BP 129/87; PULSE 96; O2SAT 94
[2024-11-26 04:08] LABS: Glucose Urine UA Negative (Normal); Nitrate Urine Negative (Negative); Specific Gravity, Urine 1.015 (1.005-1.030)
[2024-11-26 04:10] LABS: Add Urine Microscopic? YES
[2024-11-26 04:58] LABS: Hematocrit 39.4 % (36-47); Hemoglobin 12.90 g/dL (11.27-16.99); Mean Corpuscular HGB Conc 32.7 g/dL (30-55); Mean Corpuscular Hemoglobin 31.3 pg (27-33); Mean Corpuscular Volume 95.6 fl (85-98); Nucleated Red Blood Cells % 0 %; Platelet Count 221 10^3/cmm (157-399); Red Blood Count 4.12 10^6/uL (3.85-5.65); White Blood Count 11.29 10^3/uL (3.29-11.43)
[2024-11-26] MEDS: polyethylene glycol 3350 Pkt 17 gm PO (05:01)
[2024-11-26 05:15] LABS: Alanine Aminotransferase 16 U/L (0-33); Albumin Level 4.6 g/dL (3.5-5.2); Alkaline Phosphatase 75 U/L (35-105); Anion Gap 18.2 (5-19); Aspartate Amino Transferase 19 U/L (0-32); Blood Urea Nitrogen 15 mg/dL (6-20); Calcium 9.8 mg/dL (8.5-10.5); Carbon Dioxide 25 mmol/L (22-29); Chloride 99 mmol/L (98-107); Creatinine Clr Calc Pharmacy 83.7252; Globulin 2.5 g/dL (1.3-4.6); Glucose 100 mg/dL (65-115); Osmolality Calculated 287 mOsm/kg (285-295); Potassium 4.2 mmol/L (3.5-5.1); Sodium 138 mmol/L (136-145); Total Protein 7.1 g/dL (6.6-8.7)
--- NOTE | 2024-11-26 05:28 | ED_ITS ---
Documented by User: Pam Webber MD 11/30/24 20:04 HPI - Back Pain/Injury 2 General: Chief Complaint: Back Pain/Injury Stated Complaint: Muscle cramps Time Seen by Provider: 11/26/24 03:33 History of Present Illness: 19yo F w/cc of worsening b/l LE weakness . This has been ongoing for 2 weeks. She states she has recently been diagnosed w/MS. She has been experiencing intermittent paresthesia of her face, right arm. LE weakness has been ongoing for 2 weeks. She has not been started on steroids as she's awaiting appointment at [facility]. She denies new or worsening upper extremity weakness. She is complaining of difficulty urinating, urinary incontinence, constipation. Patient states that the lower extremity weakness has acutely worsened overnight and she now has difficulty walking at all. She states that she has not had a fever, does not denies chest pain, shortness of breath. She reports lower abdomen pain due to constipation but no nausea or vomiting. She has a history of cholecystectomy and appendectomy. Related Data Home Medications ?Medication ?Instructions ?Recorded ?Confirmed duloxetine 30 mg capsule,delayed 30 mg PO DAILY 11/26/24 release multivitamin 1 tab PO DAILY 11/28/2211/11 amlodipine 5 mg tablet (Norvasc) 5 mg PO DAILY 5 11/26/24 cetirizine 10 mg capsule (Zyrtec) 10 mg PO DAILY PRN a llergies 04/09/24 11/26/24 hydrochlorothiazide 12.5 mg tablet 25 mg PO DAILY 03/1511/26/24 Provitalize 2 cap PO DAILY 11/26/2411/11 bisacodyl 5 mg tablet,delayed 5 mg PO DAILY PRN Consti pation 11/26/24 11/26/24 release (Dulcolax (bisacodyl)) hydralazine 25 mg tablet See Rx Instructions .Route 1 11/26/24 .COMPLEX PRN Blood Pressure irbesartan 150 mg tablet 150 mg PO DAILY 11/26/24 magnesium carb,citrate,oxide 600 mg PO DAILY 11/26/24 11/26/24 (Magnesium Complex) oxybutynin chloride 10 mg 10 mg PO DAILY 11/26/2411/11 tablet,extended release 24 hr potassium citrate 99 mg capsule 99 mg PO DAILY 5 11/26/24 tizanidine 4 mg tablet 4 mg PO Q6H PRN muscle spasm s 11/26/24 11/26/24 trospium 20 mg tablet 20 mg PO BID 11/26/24 Previous Rx's ?Medication ?Instructions ?Recorded prednisone 20 mg tablet 20 mg PO TID #15 tabs Allergies Allergy/AdvReac Type Severity Reaction Status Date / Time albuterol Allergy Unknown hives Verified 11/26/24 03:16 amoxicillin Allergy Unknown rash Verified 11/26/24 03:16 erythromycin base Allergy Unknown rash Verified 11/26/24 03:16 Penicillins Allergy Unknown rash Verified 11/26/24 03:16 Zithromax Allergy Unknown rash Uncoded 04/09/24 07:24 PFSH ED 2 PFSH: Medical History (Updated 11/30/24 @ 10:38 by Jamal Isaacs DO) History of breast cancer Social History Smoking and tobacco/nicotine status: never used tobacco/nicotine Alcohol intake: never Substance/Drug Use: never Physical Exam 2 Narrative: EXAM NARRATIVE: Vital signs were reviewed. Patient is alert and oriented. Patient is breathing comfortably, no increased WOB or accessory muscle use. SpO2 is above 95% on RA. Patient has clear lungs b/l, no rhonchi, wheezing or crackles. No hypotension or tachycardia. Abdomen is soft, nondistended and nontender. No deformity or gross injury of extremities. No lower extremity edema or asymmetry. Patient is able to lift b/l LE against gravity. She has brisk knee reflexes. Course 2 Vital Signs: Vital signs: Vital Signs Temperature 97.8 F 11/26/24 03:10 Pulse Rate 78 11/26/24 14:08 Respiratory Rate 16 11/26/24 03:10 Blood Pressure 108/82 11/26/24 14:08 Pulse Oximetry 98 11/26/24 14:08 Oxygen Delivery Me thod Room Air 11/26/24 03:10 MDM - Back Pain/Injury Medical Decision Making 49yo F w/cc of worsening LE weakness, started two weeks ago, now unable to ambulate independently, reporting urinary difficulty and incontinence and constipation. [place] diagnosis includes, is limited to, constipation, bowel obstruction, spinal lesion, transverse myelitis, MS flare, other. Patient was evaluated with CBC, CMP, UA, bladder scan postvoid. MR cervical and thoracic spine imaging obtained. Care signed out to Dr. Mchugh at signout. Labs and imaging reviewed MRI is unremarkable for any acute lesions. Patient given 10 mg Decadron hydrocodone. Will discuss with [facility] who Dr. Webber had discussed with earlier. Discussed with on-call neurology at [facility] were able to upload today's MRI imaging as well as the MRI of her brain from last week. Patient is feeling better and is able to ambulate now although has somewhat of a difficulty with gait at various times. Initially she walked with a nurse nurse reports she walked essentially normally later when I had her walk for me she did have a little bit more of a hesitant at times shuffling gait but was able to ambulate turn and get in and out of bed. I also discussed Dr. Hung who seen patient in the past. Patient has a appointment next week with [facility] for evaluation with neurology. At this point I do not believe there is any benefit in admission for high-dose steroids and neurology from [facility] agreed after reviewing her films. The MRI of the brain previously had showed some questionable areas of demyelination in the brain but nothing on the thoracic or lumbar spine. Dr. Gaspar also would be available for follow-up tomorrow. Reviewed the findings with the patient she is comfortable the plan of discharging home put her on her brief oral steroid taper and have her follow-up with Dr. Hung in the office tomorrow by phone. Keep her appointment with Destiny she was as scheduled next week Labs 11/26/24 04:52 11/26/24 04:52 Radiology Impressions Cervical Spine MRI 11/26/24 05:48 IMPRESSION: 1. No enhancing lesions in the cervical cord. 2. No chronic appearing demyelinating lesions. 3. No cord atrophy. 4. Mild spondylitic changes Thoracic Spine MRI 11/26/24 05:48 IMPRESSION: Some images are motion artifact. 1. Normal cord signal. 2. No enhancing lesions in the thoracic cord. No cord atrophy. 3. No other acute thoracic findings. Laboratory Results WBC 11.29 10^3/uL (3.29-11.43) 10/16/25 04:52 RBC 4.12 10^6/uL (3.85-5.65) 11/26/24 04:52 Hgb 12.90 g/dL (11.27-16.99) 11/26/24 04:52 Hct 39.4 % (36-47) 11/26/24 04:52 MCV 95.6 fl (85-98) 11/26/24 04:52 MCH 31.3 pg (27-33) 11/26/24 04:52 MCHC 32.7 g/dL (30-55) 11/26/24 04:52 RDW 12.4 % (12.1-15.1) 11/26/24 04:52 Plt Count 221 10^3/cmm (157-399) 11/26/24 04:52 MPV 10.0 fL (7.4-10.4) 11/26/24 04:52 Neut % (Auto) 89.8 % 11/26/24 04:52 Lymph % (Auto) 4.3 % 11/26/24 04:52 Roberts % (Auto) 5.0 % 11/26/24 04:52 Eos % (Auto) 0.2 % 11/26/24 04:52 Baso % (Auto) 0.3 % 11/26/24 04:52 Neut # (Auto) 10.15 10^3/uL (1.8-7.7) H 11/26/24 04:52 Lymph # (Auto) 0.5 10^3/uL (0.8-4.8) L 11/26/24 04:52 Roberts # (Auto) 0.6 10^3/uL (0.2-0.9) 11/26/24 04:52 Eos # (Auto) 0.0 10^3/uL (0.0-0.8) 11/26/24 04:52 Baso # (Auto) 0.0 10^3/uL (0.0-0.1) 11/26/24 04:52 Nucleated RBC % (auto) 0 % 11/26/24 04:52 Nucleated RBCs # 0.0 /100WBC 11/26/24 04:52 Sodium 138 mmol/L (136-145) 11/26/24 04:52 Potassium 4.2 mmol/L (3.5-5.1) 11/26/24 04:52 Chloride 99 mmol/L (98-107) 11/26/24 04:52 Carbon Dioxide 25 mmol/L (22-29) 11/26/24 04:52 Anion Gap 18.2 (5-19) 11/26/24 04:52 BUN 15 mg/dL (6-20) 11/26/24 04:52 Creatinine 0.7 mg/dL (0.5-0.9) 11/26/24 04:52 GFR Calculation 88.9 mL/min (90-130) L 11/26/24 04:52 Glucose 100 mg/dL (65-115) 11/26/24 04:52 Calculated Osmolality 287 mOsm/kg (285-295) 11/26/24 04:52 Calcium 9.8 mg/dL (8.5-10.5) 11/26/24 04:52 Total Bilirubin 0.4 mg/dL (0.15-1.2) 11/26/24 04:52 AST 19 U/L (0-32) 11/26/24 04:52 ALT 16 U/L (0-33) 11/26/24 04:52 Alkaline Phosphatase 75 U/L (35-105) 11/26/24 04:52 Total Protein 7.1 g/dL (6.6-8.7) 11/26/24 04:52 Albumin 4.6 g/dL (3.5-5.2) 11/26/24 04:52 Globulin 2.5 g/dL (1.3-4.6) 11/26/24 04:52 Urine Color Yellow (Yellow) 11/26/24 04:03 Urine Appearance Clear (CLEAR) 11/26/24 04:03 Urine pH 6.5 (5-7) 11/26/24 04:03 Ur Specific [place] 1.015 (1.005-1.030) 11/26/24 04:03 Urine Protein Negative (Negative) 11/26/24 04:03 Urine Glucose (UA) Negative (Normal) 11/26/24 04:03 Urine Ketones Negative (Negative) 11/26/24 04:03 Urine Blood Negative (Negative) 11/26/24 04:03 Urine Nitrate Negative (Negative) 11/26/24 04:03 Urine Bilirubin Negative (Negative) 11/26/24 04:03 Urine Urobilinogen 0.2 mg/dL (Negative) 11/26/24 04:03 Ur Leukocyte Esterase Negative (Negative) 11/26/24 04:03 Urine RBC 0-2 /hpf (0-2) 11/26/24 04:03 Urine WBC 0-5 /hpf (0-5) 11/26/24 04:03 Ur Squamous Epith Cells 0-5 /hpf (0-5) 11/26/24 04:03 Amorphous Sediment Not Reportable 11/26/24 04:03 Urine Bacteria None seen /hpf (NONE) 11/26/24 04:03 Hyaline Casts 0.81 /lpf 11/26/24 04:03 Discharge Plan Discharge Patient Disposition: Home Clinical Impression: Bilateral leg weakness, Central nervous system demyelinating disease Condition: Stable Prescriptions: New prednisone 20 mg tablet 20 mg PO TID Qty: 15 0RF Rx Instructions: 1 p.o. 3 times daily x3 days, 1 p.o. twice daily x2 days, 1 p.o. daily x2 days No Action amlodipine [Norvasc] 5 mg tablet 5 mg PO DAILY Zyrtec 10 mg capsule 10 mg PO DAILY PRN (Reason: allergies) duloxetine 30 mg capsule,delayed release(DR/EC) 30 mg PO DAILY multivitamin Tablet 1 tab PO DAILY hydrochlorothiazide 12.5 mg tablet 25 mg PO DAILY tizanidine 4 mg tablet 4 mg PO Q6H PRN (Reason: muscle spasms) hydralazine 25 mg tablet See Rx Instructions .ROUTE .COMPLEX PRN (Reason: Blood Pressure) Rx Instructions: TAKE 1 TABLET BY MOUTH EVERY 8 HOURS NEEDED FOR BP GREATER THAN 160 SYSTOLIC OR 95 DIASTOLIC irbesartan 150 mg tablet 150 mg PO DAILY trospium 20 mg tablet 20 mg PO BID Magnesium Complex 300 mg magnesium Tablet 600 mg PO DAILY bisacodyl [Dulcolax (bisacodyl)] 5 mg Tablet,Delayed Release (Dr/Ec) 5 mg PO DAILY PRN (Reason: Constipation) potassium citrate 99 mg Capsule 99 mg PO DAILY oxybutynin chloride 10 mg tablet extended release 24hr 10 mg PO DAILY Provitalize 2 cap PO DAILY Discharge Orders: Discharge ED (Routine); Ordered 11/26/24 Ordered By: Jamal Isaacs Referrals: North Hung MD [Primary Care Provider, Family Practice] Discharge Diet: Usual diet Discharge Activity: Increase activity as tolerated Patient Instructions: Opioid Safety, Pain Management, Patient Portal & Michael Instructions Activity Restrictions/Additional Instructions: Thank you for choosing [facility] for your healthcare needs today. It is very important that you follow up as instructed or that you return to the Emergency Department should you have concerns or if your condition changes or worsens in any way. Emergency department visits are focused on emergent conditions, in some cases you may require further evaluation on an outpatient basis. You were seen in the emergency room with complaints of bilateral lower extremity weakness. We reviewed your previous MRI. The initial ER doctor seen you consulted [facility] neurology. They reviewed the previous MRI of the head and the MRIs of the thoracic and lumbar spine that were done today. The MRIs of the back done today did not show any abnormalities. Will discharge you home with a short course of steroids follow-up with neurology as scheduled at [facility] and with your primary care doctor. (Please note that included in your discharge packet is information concerning opioid safety and pain management. This information is given to all patients were discharged from the ER regardless of their discharge diagnosis or the medicines they usually take or are prescribed.) Print Language: Afghan Coding Level of Care Code ED Data Migration Consultant for Chg Fwd Documented by User: Jamal Isaacs DO 11/30/24 10:38 HPI - Back Pain/Injury 2 General: Chief Complaint: Back Pain/Injury Stated Complaint: Muscle cramps Time Seen by Provider: 11/26/24 03:33 Related Data Home Medications ?Medication ?Instructions ?Recorded ?Confirmed duloxetine 30 mg capsule,delayed 30 mg PO DAILY 11/26/24 release multivitamin 1 tab PO DAILY 11/28/2211/11 amlodipine 5 mg tablet (Norvasc) 5 mg PO DAILY 5 11/26/24 cetirizine 10 mg capsule (Zyrtec) 10 mg PO DAILY PRN a llergies 04/09/24 11/26/24 hydrochlorothiazide 12.5 mg tablet 25 mg PO DAILY 03/1511/26/24 Provitalize 2 cap PO DAILY 11/26/2411/11 bisacodyl 5 mg tablet,delayed 5 mg PO DAILY PRN Consti pation 11/26/24 11/26/24 release (Dulcolax (bisacodyl)) hydralazine 25 mg tablet See Rx Instructions .Route 1 11/26/24 .COMPLEX PRN Blood Pressure irbesartan 150 mg tablet 150 mg PO DAILY 11/26/24 magnesium carb,citrate,oxide 600 mg PO DAILY 11/26/24 11/26/24 (Magnesium Complex) oxybutynin chloride 10 mg 10 mg PO DAILY 11/26/2411/11 tablet,extended release 24 hr potassium citrate 99 mg capsule 99 mg PO DAILY 5 11/26/24 tizanidine 4 mg tablet 4 mg PO Q6H PRN muscle spasm s 11/26/24 11/26/24 trospium 20 mg tablet 20 mg PO BID 11/26/24 Previous Rx's ?Medication ?Instructions ?Recorded prednisone 20 mg tablet 20 mg PO TID #15 tabs Allergies Allergy/AdvReac Type Severity Reaction Status Date / Time albuterol Allergy Unknown hives Verified 11/26/24 03:16 amoxicillin Allergy Unknown rash Verified 11/26/24 03:16 erythromycin base Allergy Unknown rash Verified 11/26/24 03:16 Penicillins Allergy Unknown rash Verified 11/26/24 03:16 Zithromax Allergy Unknown rash Uncoded 04/09/24 07:24 [facility] ED 2 PFSH: Medical History (Updated 11/30/24 @ 10:38 by Jamal Isaacs DO) History of breast cancer Social History Smoking and tobacco/nicotine status: never used tobacco/nicotine Alcohol intake: never Substance/Drug Use: never Course 2 Vital Signs: Vital signs: Vital Signs Temperature 97.8 F 11/26/24 03:10 Pulse Rate 78 11/26/24 14:08 Respiratory Rate 16 11/26/24 03:10 Blood Pressure 108/82 11/26/24 14:08 Pulse Oximetry 98 11/26/24 14:08 Oxygen Delivery Me thod Room Air 11/26/24 03:10 MDM - Back Pain/Injury Medical Decision Making 49yo F w/cc of worsening LE weakness, started two weeks ago, now unable to ambulate independently, reporting urinary difficulty and incontinence and constipation. [place] diagnosis includes, is limited to, constipation, bowel obstruction, spinal lesion, transverse myelitis, MS flare, other. Patient was evaluated with CBC, CMP, UA, bladder scan postvoid. MR cervical and thoracic spine imaging obtained. Labs and imaging reviewed MRI is unremarkable for any acute lesions. Patient given 10 mg Decadron hydrocodone. Will discuss with [facility] who Dr. Webber had discussed with earlier. Discussed with on-call neurology at [facility] were able to upload today's MRI imaging as well as the MRI of her brain from last week. Patient is feeling better and is able to ambulate now although has somewhat of a difficulty with gait at various times. Initially she walked with a nurse nurse reports she walked essentially normally later when I had her walk for me she did have a little bit more of a hesitant at times shuffling gait but was able to ambulate turn and get in and out of bed. I also discussed Dr. Hung who seen patient in the past. Patient has a appointment next week with [facility] for evaluation with neurology. At this point I do not believe there is any benefit in admission for high-dose steroids and neurology from [facility] agreed after reviewing her films. The MRI of the brain previously had showed some questionable areas of demyelination in the brain but nothing on the thoracic or lumbar spine. Dr. Gaspar also would be available for follow-up tomorrow. Reviewed the findings with the patient she is comfortable the plan of discharging home put her on her brief oral steroid taper and have her follow-up with Dr. Hung in the office tomorrow by phone. Keep her appointment with Destiny she was as scheduled next week Medical Records I reviewed the patient's medical records. Labs I reviewed the patient's lab results. 11/26/24 04:52 11/26/24 04:52 Radiology Impressions Cervical Spine MRI 11/26/24 05:48 IMPRESSION: 1. No enhancing lesions in the cervical cord. 2. No chronic appearing demyelinating lesions. 3. No cord atrophy. 4. Mild spondylitic changes Thoracic Spine MRI 11/26/24 05:48 IMPRESSION: Some images are motion artifact. 1. Normal cord signal. 2. No enhancing lesions in the thoracic cord. No cord atrophy. 3. No other acute thoracic findings. Laboratory Results WBC 11.29 10^3/uL (3.29-11.43) 11/26/24 04:52 RBC 4.12 10^6/uL (3.85-5.65) 11/26/24 04:52 Hgb 12.90 g/dL (11.27-16.99) 11/26/24 04:52 Hct 39.4 % (36-47) 11/26/24 04:52 MCV 95.6 fl (85-98) 11/26/24 04:52 MCH 31.3 pg (27-33) 11/26/24 04:52 MCHC 32.7 g/dL (30-55) 11/26/24 04:52 RDW 12.4 % (12.1-15.1) 11/26/24 04:52 Plt Count 221 10^3/cmm (157-399) 11/26/24 04:52 MPV 10.0 fL (7.4-10.4) 11/26/24 04:52 Neut % (Auto) 89.8 % 11/26/24 04:52 Lymph % (Auto) 4.3 % 11/26/24 04:52 Roberts % (Auto) 5.0 % 11/26/24 04:52 Eos % (Auto) 0.2 % 11/26/24 04:52 Baso % (Auto) 0.3 % 11/26/24 04:52 Neut # (Auto) 10.15 10^3/uL (1.8-7.7) H 11/26/24 04:52 Lymph # (Auto) 0.5 10^3/uL (0.8-4.8) L 11/26/24 04:52 Roberts # (Auto) 0.6 10^3/uL (0.2-0.9) 11/26/24 04:52 Eos # (Auto) 0.0 10^3/uL (0.0-0.8) 11/26/24 04:52 Baso # (Auto) 0.0 10^3/uL (0.0-0.1) 11/26/24 04:52 Nucleated RBC % (auto) 0 % 11/26/24 04:52 Nucleated RBCs # 0.0 /100WBC 11/26/24 04:52 Sodium 138 mmol/L (136-145) 11/26/24 04:52 Potassium 4.2 mmol/L (3.5-5.1) 11/26/24 04:52 Chloride 99 mmol/L (98-107) 11/26/24 04:52 Carbon Dioxide 25 mmol/L (22-29) 11/26/24 04:52 Anion Gap 18.2 (5-19) 11/26/24 04:52 BUN 15 mg/dL (6-20) 11/26/24 04:52 Creatinine 0.7 mg/dL (0.5-0.9) 11/26/24 04:52 GFR Calculation 88.9 mL/min (90-130) L 11/26/24 04:52 Glucose 100 mg/dL (65-115) 11/26/24 04:52 Calculated Osmolality 287 mOsm/kg (285-295) 11/26/24 04:52 Calcium 9.8 mg/dL (8.5-10.5) 11/26/24 04:52 Total Bilirubin 0.4 mg/dL (0.15-1.2) 11/26/24 04:52 AST 19 U/L (0-32) 11/26/24 04:52 ALT 16 U/L (0-33) 11/26/24 04:52 Alkaline Phosphatase 75 U/L (35-105) 11/26/24 04:52 Total Protein 7.1 g/dL (6.6-8.7) 11/26/24 04:52 Albumin 4.6 g/dL (3.5-5.2) 11/26/24 04:52 Globulin 2.5 g/dL (1.3-4.6) 11/26/24 04:52 Urine Color Yellow (Yellow) 11/26/24 04:03 Urine Appearance Clear (CLEAR) 11/26/24 04:03 Urine pH 6.5 (5-7) 11/26/24 04:03 Ur Specific [place] 1.015 (1.005-1.030) 11/26/24 04:03 Urine Protein Negative (Negative) 11/26/24 04:03 Urine Glucose (UA) Negative (Normal) 11/26/24 04:03 Urine Ketones Negative (Negative) 11/26/24 04:03 Urine Blood Negative (Negative) 11/26/24 04:03 Urine Nitrate Negative (Negative) 11/26/24 04:03 Urine Bilirubin Negative (Negative) 11/26/24 04:03 Urine Urobilinogen 0.2 mg/dL (Negative) 11/26/24 04:03 Ur Leukocyte Esterase Negative (Negative) 11/26/24 04:03 Urine RBC 0-2 /hpf (0-2) 11/26/24 04:03 Urine WBC 0-5 /hpf (0-5) 11/26/24 04:03 Ur Squamous Epith Cells 0-5 /hpf (0-5) 11/26/24 04:03 Amorphous Sediment Not Reportable 11/26/24 04:03 Urine Bacteria None seen /hpf (NONE) 11/26/24 04:03 Hyaline Casts 0.81 /lpf 11/26/24 04:03 All radiology interpretation(s) finalized by discharge Discharge Plan Discharge Patient Disposition: Home Clinical Impression: Bilateral leg weakness, Central nervous system demyelinating disease Condition: Stable Prescriptions: New prednisone 20 mg tablet 20 mg PO TID Qty: 15 0RF Rx Instructions: 1 p.o. 3 times daily x3 days, 1 p.o. twice daily x2 days, 1 p.o. daily x2 days No Action amlodipine [Norvasc] 5 mg tablet 5 mg PO DAILY Zyrtec 10 mg capsule 10 mg PO DAILY PRN (Reason: allergies) duloxetine 30 mg capsule,delayed release(DR/EC) 30 mg PO DAILY multivitamin Tablet 1 tab PO DAILY hydrochlorothiazide 12.5 mg tablet 25 mg PO DAILY tizanidine 4 mg tablet 4 mg PO Q6H PRN (Reason: muscle spasms) hydralazine 25 mg tablet See Rx Instructions .ROUTE .COMPLEX PRN (Reason: Blood Pressure) Rx Instructions: TAKE 1 TABLET BY MOUTH EVERY 8 HOURS NEEDED FOR BP GREATER THAN 160 SYSTOLIC OR 95 DIASTOLIC irbesartan 150 mg tablet 150 mg PO DAILY trospium 20 mg tablet 20 mg PO BID Magnesium Complex 300 mg magnesium Tablet 600 mg PO DAILY bisacodyl [Dulcolax (bisacodyl)] 5 mg Tablet,Delayed Release (Dr/Ec) 5 mg PO DAILY PRN (Reason: Constipation) potassium citrate 99 mg Capsule 99 mg PO DAILY oxybutynin chloride 10 mg tablet extended release 24hr 10 mg PO DAILY Provitalize 2 cap PO DAILY Discharge Orders: Discharge ED (Routine); Ordered 11/26/24 Ordered By: Jamal Isaacs Referrals: North Hung MD [Primary Care Provider, Family Practice] Discharge Diet: Usual diet Discharge Activity: Increase activity as tolerated Patient Instructions: Opioid Safety, Pain Management, Patient Portal & Michael Instructions Activity Restrictions/Additional Instructions: Thank you for choosing [facility] for your healthcare needs today. It is very important that you follow up as instructed or that you return to the Emergency Department should you have concerns or if your condition changes or worsens in any way. Emergency department visits are focused on emergent conditions, in some cases you may require further evaluation on an outpatient basis. You were seen in the emergency room with complaints of bilateral lower extremity weakness. We reviewed your previous MRI. The initial ER doctor seen you consulted [facility] neurology. They reviewed the previous MRI of the head and the MRIs of the thoracic and lumbar spine that were done today. The MRIs of the back done today did not show any abnormalities. Will discharge you home with a short course of steroids follow-up with neurology as scheduled at [facility] and with your primary care doctor. (Please note that included in your discharge packet is information concerning opioid safety and pain management. This information is given to all patients were discharged from the ER regardless of their discharge diagnosis or the medicines they usually take or are prescribed.) Print Language: Afghan Coding Level of Care Code ED Data Migration Consultant for Xi Herron
--- NOTE | 2024-11-26 05:48 | MR_ITS ---
WS: [id number] MR CERVICAL SPINE WO/W HISTORY: leg weakness, difficulty urinating TECHNIQUE: Sagittal T1, T2 and T2 inversion recovery; axial T2, T2 gradient and fiesta. Post gadolinium imaging with fat saturation technique. FINDINGS: No enhancing lesions in the cervical cord. No demyelinating lesions. No cord atrophy. No abnormal gadolinium enhancement. C2-3: Spinal canal and foramen are patent. C3-4: Mild facet arthropathy. C4-5: Disc osteophyte complex with endplate ridging. Moderate LEFT bony foraminal narrowing. Mild facet arthropathy. C5-6: Mild LEFT bony foraminal narrowing. Mild facet arthropathy. C6-7: Tiny shallow central disc bulging. Spinal canal and foramen are patent. C7-T1: Mild LEFT bony foraminal narrowing. MR/MR cervical spine wo/w [id number] IMPRESSION: 1. No enhancing lesions in the cervical cord. 2. No chronic appearing demyelinating lesions. 3. No cord atrophy. 4. Mild spondylitic changes
--- NOTE | 2024-11-26 05:48 | MR_ITS ---
WS: [id number] MRI THORACIC SPINE WITH CONTRAST TECHNIQUE: Sagittal T1, T2 and STIR imaging. Axial T2 imaging. Post gadolinium imaging was obtained. CLINICAL INFORMATION: leg weakness, difficulty urinating COMPARISON: None. FINDINGS: Some images degraded by motion artifact Mild thoracic curve. Mild thoracic kyphosis. Normal CSF pulsation artifact in the dorsal canal. Cord signal appears normal. No cord atrophy. No demyelinating lesions considering motion artifact. No enhancing lesions. Normal caliber descending thoracic aorta. Adrenal glands are normal. Numerous partially visualized hepatic cysts. Partially visualized kidneys with a small RIGHT renal cyst. MR/MR thoracic spine wo/w [id number] IMPRESSION: Some images are motion artifact. 1. Normal cord signal. 2. No enhancing lesions in the thoracic cord. No cord atrophy. 3. No other acute thoracic findings.
[2024-11-26 06:00] VITALS: BP 116/82; PULSE 100; O2SAT 92
--- NOTE | 2024-11-26 08:25 | PC.NURSE ---
pt still in MRI at this time
[2024-11-26] MEDS: HYDROcodone-acetaminophen 5-325 mg Tablet 1 TAB PO (11:11)
--- NOTE | 2024-11-26 12:00 | PC.NURSE ---
pt ambulated well with tech assistance, did report feeling dizzy/weak; ED provider notified
[2024-11-26 14:08] VITALS: BP 108/82; PULSE 78; O2SAT 98
== END 2024-11-26 14:10 | disposition home or self-care (01) ==
PROVIDERS: Emergency Medicine; Emergency Provider Family Medicine; PCP Family Medicine
DX: R53.1 Weakness (principal); G37.9 Demyelinating disease of central nervous system, unspecified; Z85.3 Personal history of malignant neoplasm of breast
CPT/HCPCS: 36415; 51798; 72156; 72157; 80053; 81001; 85025; 96372; 99284; J1100; J9999